=== PATIENT | female | born 1980 | race Caucasian/White ===

== ENCOUNTER 2016-11-07 01:01 | Emergency (ER) | payer OTHER ==
[~2016-11-07] VITALS: Ht 175.3 cm; Wt 109.5 kg
[2016-11-07 01:08] VITALS: BP 130/77; PULSE 84; RESP 16; O2SAT 98
--- NOTE | 2016-11-07 01:13 | ED.REPORT ---
HPI-Abd Pain F Under 40 Date of Service Nov 07, 2016 ED Provider: Dr. Deshawn Ahuja M.D. A 36 year old [id number] female at 18 weeks with a history of gestational diabetes presents to the ED via EMS from [facility] with right-sided abdominal pain onset 1500 today. The pain began in her lower back while driving, then migrated to her right flank, and once again to her abdomen at 1700. The patient also reports nausea. She denies fever, dysuria, vaginal bleeding, or other symptoms. The patient was given Rocephin 1 GM for a UTI and ibuprofen 600mg at [facility] this evening, before being transferred for an ultrasound. En route the patient's BP was 133/81 with otherwise normal vital signs. Nursing Notes Stated Complaint: LOW BACK PAIN Chief Complaint: Female Abdominal Pain Nursing Notes Reviewed: Yes Allergies: Coded Allergies: morphine (Verified Adverse Reaction, Intermediate, Itching, 11/07/16) Scheduled Cefuroxime Axetil (Cefuroxime) 500 Mg Tablet 500 MG PO BID Ferrous Sulfate (Ferrous Sulfate) 325 Mg Tablet 325 MG PO BIDAC Scheduled PRN Ondansetron ODT (Ondansetron ODT) 8 Mg Tab.rapdis 8 MG PO QID PRN PRN For Nausea General Time Seen by MD: 01:12 Chief Complaint Abdominal pain Hx Obtained From: Patient Arrived By: Ambulance Sudden in Onset?: Yes Onset Occurred: 9 - 12 hours ago Symptom Duration: Since onset Location: : Back: Flank right: RLQ: RUQ Quality: Painful Severity: Current: Moderate Severity: Maximum: Moderate Associated with: Reports: Nausea, Denies: Diarrhea, Fever, Vomiting : 4 Para: 1 Abortions: 2 Pertinent Negative: Relieved by nothing Recent Healthcare: Recent doctor visit Past Medical History Past Medical History Gestational diabetes [id number] as of 11/07/16 Past Surgical History None reported Smoking History Unknown if Ever Smoker Ambulatory Status Independent Review of Systems Constitutional: Denies: Fever Respiratory: Denies: Non-productive cough, Shortness of breath GI: Reports: Abdominal pain, Nausea Female: Reports: Flank pain (Right), Denies: Dysuria, Vaginal bleeding - abnl Musculoskeletal: Reports: Back pain Complete sys rev & neg: except as marked. Physical Exam Initial Vital Signs Vital Signs (First) Date Time Temp Pulse Resp B/P Pulse Ox O2 Delivery O2 Flow Rate FiO2 11/07/16 01:08 36.7 84 16 130/77 98 Room Air Initial VS: Reviewed Head / Eyes: Atraumatic, Normocephalic ENT: Conjunctiva normal, No scleral icterus Neck: Supple, Full range of motion Skin: Warm, Dry, No cyanosis Neurologic: Alert, Oriented, Nonfocal Psychiatric: Mood/affect normal, Behavior normal, Normal thought content General/Constitutional: Awake, Alert, No acute distress Respiratory / Chest: Breath sounds NL, Breath sounds = bilat, No respiratory distress Cardiovascular: Heart rate NL, Regular rhythm, Heart sounds NL Abdomen: Non-tender Gravid abdomen Back: Full range of motion Flank / Spine / Paraspinal: Positive: Flank tender R Interpretation & Diagnostics US RENAL: CONCLUSION: Mild to moderate hydronephrosis the right kidney. No stones are identified. Transmitted to ED by Donny Almaraz M.D. at 11/07/16 - 3:18:05 AM PDT CBC from [facility] 11/06/16: WBC 13.8 Neutrophils # 8.9 Neutrophils % 64.4 HGB 12.6 HCT 37.2 Urinalysis from [facility] 11/06/16: 1+ Leukocyte Esterase 2+ Blood 3-5 RBC Color Yellow Clarity Hazy 1.025 sp gravity 6.0 pH Normal Urobilinogen 1-2 WBC Rare Bacteria Occasional Squamous Ep Cells Present Amorphous Crystals Otherwise Negative Lab Results Interpretation Test 11/07/16 01:20 Hold Urine Received (Received) Re-Eval/Medical Decision Med Decision/Clinical Course Med Decision/Clinical Course: 36-year-old, currently eighteen weeks , with right flank pain and mild UTI by urinalysis. Ultrasound shows moderate right hydronephrosis without apparent obstructing stone. Begun with Rocephin here in [place] to follow. Close follow-up with LOGISTICS SPECIALIST. Discussed with her call coverage. Plan follow up for Tuesday. Source of Hx: Old records Re-Evaluation/Progress #1: Time of Eval: 03:15 Patient Status: Condition improved Re-Evaluation/Progress Note: Patient rechecked. She is feeling better. Re-Evaluation/Progress #2: Time of Eval: 03:43 Patient Status: Condition improved Re-Evaluation/Progress Note: Discussed with patient US and lab results, diagnosis, and plan for discharge. Follow-up and return to the ER instructions given. Patient agrees with plan for care and all questions were addressed. Consultation : Call Returned at: 03:26 Reimbursement Auditor: Agrees with eval, Agrees with plan Note: LOGISTICS SPECIALIST: Discussed patient's case. Counseled Regarding: Diagnosis, Lab results, Need for follow-up, When/why to return to ED Discharge & Departure Primary Impression: Hydronephrosis, right Additional Impressions: Second trimester Urinary tract infection Urinary tract infection type: acute cystitis Hematuria presence: without hematuria Qualified Code: N30.00 - Acute cystitis without hematuria Disposition: Home Discharge Condition All VS Reviewed: Yes Condition: Improved Patient Instructions: Urinary Tract Infection in Women (ED) Additional Instructions: Begin [place] twice daily. Zofran if needed for nausea. Tylenol Extra Strength as needed for pain. Call your OB doctor first thing Tuesday for follow-up on Tuesday. Return if any immediate issues over the weekend. Referrals: NOPCP (PCP) Dontrell Coats MD [facility] Scribe Attestation Portions of this note were transcribed by Columba Varghese. I, Dr. Ahuja, personally performed the history, physical exam, and medical decision-making; I reviewed and confirmed the accuracy of the information in the transcribed note. Signed by: Lawrence Rosales, 11/07/2016, 04:50 copies to: Dontrell Coats MD; [facility] Deshawn Ahuja MD Nov 07, 2016 01:12 COLUMBA VARGHESE Nov 07, 2016 01:26
[2016-11-07] MEDS ORDERED: CEFU500T61 PO (03:39)
[2016-11-07] MEDS ORDERED: ONDA8TAB10 PO (03:39)
[2016-11-07] MEDS ORDERED: FERR-83 PO (03:39)
[2016-11-07 04:00] VITALS: BP 121/76; PULSE 81; RESP 16; O2SAT 100
--- NOTE | 2016-11-07 10:20 | DRSVH ---
PROCEDURE: US RENAL SONOGRAM INDICATIONS: 18 weeks rt flank pain TECHNIQUE: Real-time scanning was performed of the kidneys and bladder, with image documentation. COMPARISON: [facility] Ultrasound, US, US OB<14 WKS+OB TRANSVAG, 09/24/2016, 13:52. FINDINGS: Kidneys: Kidneys are normal in size. Right kidney measures 13.5 cm long; left kidney measures 13.4 cm long. Right renal cortical thickness is 1.7 cm; left renal cortical thickness is 1.8 cm. Renal c ortical echotexture is normal. There is mild to moderate right hydronephrosis. No renal stones ident ified. No suspicious solid mass lesions. Bladder: The patient is voided prior to the ultrasoun exam Post-void residual is 7 mL. Pre-void imag es demonstrate no intraluminal masses or stones. On pre-void images, neither ureteral jets are noted with color Doppler interrogation. (Of note, ureteral jets may not be detectable in up to 25% of gosia es due to insufficient differences in specific gravity between ureteral and bladder urine). There is an IUP with heart rate 150 bpm. Miscellaneous: No free pelvic fluid. IMPRESSION: 1. Mild/moderate right hydronephrosis. No renal stones identified. 2. An IUP with heart rate 150 bpm. Dictated by: Cayetano Mayer M.D. on 11/07/2016 at 10:14 Approved by: Cayetano Mayer M.D. on 11/07/2016 at 10:18
== END 2016-11-07 04:00 | disposition home or self-care (01) ==
LOC: SED 01:01
DX: O26.832 Pregnancy related renal disease, second trimester (principal); N13.2 Hydronephrosis with renal and ureteral calculous obstruction; O23.42 Unspecified infection of urinary tract in pregnancy, second trimester; Z3A.18 18 weeks gestation of pregnancy; Z87.59 Personal history of other complications of pregnancy, childbirth and the puerperium; Z87.891 Personal history of nicotine dependence; Z88.5 Allergy status to narcotic agent

== ENCOUNTER 2017-01-21 08:01 | Inpatient (IN) | payer OTHER ==
[~2017-01-21 08:01] MED LIST: CEFU500T61 PO; FERR-83 PO; ONDA8TAB10 PO
[2017-01-21 09:31] LABS: Mean Corpuscular Hemoglobin 27.9 pg (27.0-35.0); Mean Corpuscular Volume 85.9 fL (81-100)
[2017-01-21] MEDS ORDERED: Betameth Ace-Betam SodPhos 6 mg/mL 5 mL Inj ONE (09:49)
[2017-01-21] MEDS ORDERED: Magnesium Sulfate 20 Gm/500 mL Water Premix IV ONE (09:50)
[2017-01-21] MEDS ORDERED: Lactated Ringer's 1,000 ML IV SCH (09:55)
[2017-01-21] MEDS ORDERED: Betameth Ace-Betam SodPhos 6 mg/mL 5 mL Inj IM ONE (09:55)
[2017-01-21] MEDS ORDERED: MAGNESIUM SULF IV ONE (09:55)
[2017-01-21] MEDS ORDERED: WATER IV ONE (09:55)
[2017-01-21] MEDS ORDERED: Magnesium Sulf 2 Gm/50mL Water 2 GM in IV Premix 1 EACH IV PRN (10:15)
[2017-01-21] MEDS ORDERED: Calcium GLUCOnate 10% (Gm) 1 Gm/10 mL Inj ONE (10:50)
[2017-01-21] MEDS ORDERED: Ampicillin 2,000 mg Inj ONE (10:53)
[2017-01-21] MEDS ORDERED: Ampicillin 2,000 mg/50 mL NS Minibag Plus IV SCH ×2 (11:01)
--- NOTE | 2017-01-21 11:25 | DRSVH ---
PROCEDURE: US OB AMNIOTIC FLUID INDEX/ POSITION LIMITED INDICATIONS: CAROL,CERVICAL LENGTH,PLACENTA LOCATION OUTSIDE/PRIOR DATING DATA: Last menstrual period (LMP): 07/29/16. LMP-based estimated date of delivery (ELIZA): 05/05/17. First dating scan (date and location): 10/21/16. Estimated date of delivery (ELIZA) from first dating scan: 04/15/17. TECHNIQUE: Real-time scanning was performed of the fetus, with image documentation and biometric measurements. COMPARISON: [facility] Ultrasound, US, US OB<14 WKS+OB TRANSVAG, 09/24/2016, 13:52. FINDINGS: General: A single living intrauterine gestation is present. Presentation: Breech Placenta: Placental position is posterior fundal, without previa. OB-CURB ATTENDANT Ultrasound Procedure Report Summary Fetus Summary Est. Gest. Age by first dating scan(or LMP,if no prior):28 weeks, 6 days Heart Rate: 140 bpm Findings(Amniotic Sac) Amniotic Fluid Index (CAROL): 15.80 cm Pelvis and Uterus Cervix Length: Roughly 8mm, with near-complete dilation of cervix and bulging membranes. Complex anterior wall nabothian cysts redemonstrated. IMPRESSION: 1. Single living intrauterine gestation redemonstrated age estimated at 28 weeks 6 days by prior ult rasound. 2. Abnormal appearance of the cervix which is almost completely dilated to the external cervical os l evel with roughly 8 mm of intact cervix identified and "bulging membranes" visualized extending into the endocervical canal. Dr. Feliciano given results at 1030 hrs. 01/21/2017. Dictated by: Mick Richardson RR Interpreted: Lexi Simpson MD on 01/21/2017 at 11:13 Transcribed by: JUDAH on 01/21/2017 at 11:24 Approved by: Lexi Simpson MD, PhD on 01/21/2017 at 13:58
--- NOTE | 2017-01-21 14:02 | HP ---
[address] [address] HISTORY AND PHYSICAL PATIENT: MARIA TODD : 1980 MR#: [id number] ADMIT: 01/21/2017 JOB ID: [id number] The patient is a 36-year-old 2, para 1, who presents to Labor and Delivery with complaint of vaginal bleeding that started at around 6 o'clock in the morning. The patient has a history of labor with her first , delivered at 32 weeks. 17 hydroxy progesterone for history of delivery was started in current at 23 weeks. She has been followed with [facility] at [place], [place]. The patient's care is complicated by diabetes type 2, currently on glyburide and metformin. The ultrasound was done and it showed dilated cervix 1-1.5 cm with effacement of 1.5 cm. Membranes at the cervical os, breech presentation of the . The patient is 28 weeks and 4 days . Her estimated due date is April 09, 2017. PHYSICAL EXAMINATION: Vital signs: Temperature 36.3, blood pressure 123/71, heart rate 95, respiratory rate 18. HEENT: PERRLA. Chest: Clear bilaterally. No adventitious sounds. Cardiovascular system: Regular rate and rhythm. Abdomen is gravid, fundal height at 29 cm at the level of the umbilicus. Extremities: No pitting edema. Pelvic examination not done. MEDICATION: 1. vitamins. 2. Metformin 1500 mg p.o. q.h.s. 3. Glyburide 2.5 mg in the morning and 2.5 mg q.h.s. 4. Ferrous sulfate 325 mg p.o. daily. 5. Cefuroxime 500 mg p.o. b.i.d. She has been recently diagnosed with urinary tract infection, and according to sensitivities, she was placed on cephalosporins. heart rate tracing is appropriate for 28 weeks. The patient had occasional contractions. ALLERGIES: NKDA. ASSESSMENT AND PLAN: A 36-year-old 2, para 1, at 28 weeks and 4 days with labor, is being admitted to Labor and Delivery. Her medications for diabetes type 2 will be continued. The patient received 12 mg of betamethasone IM. Magnesium sulfate was started 4 g bolus continued with 2 g/hour. Group B strep status is unknown. Culture sent. Ampicillin was given 2 g IV piggyback one dose. The labs were sent. IV hydration started with lactated Ringer at 75 mL/hour. The plan is close monitoring and possible arranging transfer to [facility].
--- NOTE | 2017-01-21 14:12 | DIS ---
[address] [address] TRANSFER SUMMARY PATIENT: MARIA TODD : 1980 MR#: [id number] ADMIT: 01/21/2017 JOB ID: [id number] ADMITTING DIAGNOSES: 1. Intrauterine 28 weeks and 4 days. 2. labor. TRANSFERRING DIAGNOSES: 1. Intrauterine 28 weeks and 4 days. 2. labor. The patient is a 36-year-old 2, para 1 at 28 weeks and 4 days, estimated due date April 09, 2017, who presents to Labor and Delivery with complaints of vaginal bleeding with two small clots passed at 6 o'clock in the morning. By the time she is in labor and delivery floor, the bleeding is mild. The patient denied any contractions at presentation. Reports occasional contractions at the time of transfer. heart rate tracing is appropriately active for 28 weeks. Baseline 140 beats per minute. The patient's care was complicated with diabetes type 2. She has been taking glyburide 2.5 mg p.o. b.i.d. and metformin 1500 mg p.o. q.h.s. Blood glucose levels were checked, most of them normal. The fasting level today was 89. The highest level yesterday was 152 postprandial after breakfast. OBSTETRICAL HISTORY: History of a delivery at 32 weeks with her first . The patient has been followed by [facility] in [place] beginning at 23 weeks of current and weekly 17 hydroxyprogesterone was started at 23 weeks. ALLERGIES: NKDA. SOCIAL HISTORY: Denies smoking, alcohol or illicit recreational drug use. In current , she has a history of one urinary tract infection, was started on cephalosporins. FAMILY HISTORY: Noncontributory. PHYSICAL EXAMINATION: Vital signs: Temperature 36.3, blood pressure 123/71, respiratory rate 18, heart rate 95. HEENT: PERRLA. Lungs: Clear bilaterally. No adventitious sounds. Cardiovascular system: Regular rate and rhythm. Abdomen is soft, nondistended, nontender, fundal height at 28 cm. Pelvic examination not done due to her symptoms. Extremities: No pitting edema. Ultrasound was done and showed breech presentation with cervix that is 90% effaced, dilated to 1.5 cm. The fundal placenta. Good movements. ASSESSMENT AND PLAN: A 36-year-old 2, para 1, at 28 weeks and 4 days being transferred to [facility] because of labor. The patient received one dose of corticosteroids, betamethasone was given 12 mg. Magnesium sulfate was given 4 g bolus, continued with 2 g/hour. Group B strep status is unknown, cultures were sent, ampicillin was given 2 g IV piggyback. IV hydration was started was lactated Ringer. Labs were sent. The patient's medical records and imaging reports being sent with her. Consent for the transfer was obtained. The accepting physician is Dr. Persaud at [facility], phone #[phone].
== END 2017-01-21 11:15 | disposition short-term general hospital (02) | DRG 563 ==
LOC: FBCO 08:01 → FBC 09:51
PROVIDERS: ADMIT Obstetrics & Gynecology; ATTEND Obstetrics & Gynecology
PROC: 3E033GC Introduction of Other Therapeutic Substance into Peripheral Vein, Percutaneous Approach (ICD-10-PCS; principal; 2017-01-21)
DX: O60.03 Preterm labor without delivery, third trimester (principal); O24.913 Unspecified diabetes mellitus in pregnancy, third trimester; Z3A.28 28 weeks gestation of pregnancy; Z79.4 Long term (current) use of insulin; Z79.84 Long term (current) use of oral hypoglycemic drugs; O32.1XX0 Maternal care for breech presentation, not applicable or unspecified